=== PATIENT | female | born 1970 | race Caucasian/White ===

== ENCOUNTER 2016-03-20 15:55 | Emergency (ER) | payer OTHER ==
[~2016-03-20] VITALS: Ht 170.2 cm; Wt 63.6 kg
[2016-03-20 15:58] VITALS: BP 136/95; PULSE 96; RESP 16; O2SAT 96
[2016-03-20] MEDS ORDERED: Thiamine Inj 100 MG, Folic Acid Inj 1 MG, Magnesium Sulfate 50% Inj 2 GM, Multivitamins... IV ONE ×5 (16:45)
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
[2016-03-20] MEDS ORDERED: _LORazepam 2 MG Tablet PO SCH (20:45)
[2016-03-20] MEDS ORDERED: LORazepam 2 mg Tablet PO ONE (23:45)
[2016-03-20 23:58] VITALS: BP 125/86; PULSE 89; RESP 16; O2SAT 100
== END 2016-03-21 00:06 | disposition home or self-care (01) ==
LOC: SED 15:55
DX: F10.10 Alcohol abuse, uncomplicated (principal); J45.909 Unspecified asthma, uncomplicated; Z88.8 Allergy status to other drugs, medicaments and biological substances
CPT/HCPCS: 81002; 82075; 96365; 96366; 96375; 99284; J2060; J3475; J7030

== ENCOUNTER 2016-10-02 09:43 | Emergency (ER) | payer OTHER ==
[~2016-10-02] VITALS: Ht 170.2 cm; Wt 61.4 kg
[2016-10-02 09:48] VITALS: BP 124/80; PULSE 82; RESP 18; O2SAT 99
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
[2016-10-02] MEDS ORDERED: LORA-303 PO (12:40)
== END 2016-10-02 13:14 | disposition home or self-care (01) ==
LOC: SED 09:43
DX: F10.20 Alcohol dependence, uncomplicated (principal); J45.909 Unspecified asthma, uncomplicated; F41.9 Anxiety disorder, unspecified; F17.200 Nicotine dependence, unspecified, uncomplicated; Y90.7 Blood alcohol level of 200-239 mg/100 ml; Z91.041 Radiographic dye allergy status